=== PATIENT | male | born 2000 | race Caucasian/White ===

== ENCOUNTER 2021-11-23 01:21 | Day surgery (SDC) | payer BC, SELFPAY ==
[2021-11-22 12:29] VITALS: BMI 23.7
--- NOTE | 2021-11-22 12:36 | PC.NURSE ---
Report to the Outpatient Waiting Room, entrance under the green pavilion located off [facility], at time 0900 on date 11/23/21. OR Time: 1100. - You and your visitor will be asked a series of questions to screen for COVID 19 for your protection. - A mask is required within the hospital. One visitor will be allowed to accompany the patient into the hospital. Patients visitor will be instructed to remain with patient at all times or leave the building. We will allow the visitor to come back to the postoperative area when patient is ready. Preoperative COVID Testing Requirements: No COVID Test needed if: (proof is required; if not received patient will have Rapid Test prior to entry) - Patient has received COVID Vaccine at least 14 days prior to procedure date or - Patient has positive COVID test result within last 90 days of surgery date. COVID Test needed if above criteria is not met Patients may have clear liquids (water, carbonated beverages, clear teas, apple juice) until 3 hours prior to surgery (0800) with a maximum of 20 ounces. - No food from midnight until time of surgery Take the following medications with a SIP of water the morning of surgery: NONE Medications to discontinue per physician: N/A Date to take last dose: N/A Please no make-up, nail hebrew, hairspray, perfume, deodorant, or body powder the day of surgery. No jewelry (including any body piercings) or valuables the day of surgery, leave them at home. Please take a shower or bath the night before, or the morning of, surgery with an antibacterial soap. Wear comfortable, loose fitting clothing. - Jewelry must be removed prior to entering the operating room. Rings and piercings that are not removed may be cut off. - The hospital will not accept responsibility for valuables. - Please leave all valuables, including medications, at home the day of surgery. If you are going home after surgery, a licensed oil transport driver must drive you home. - NO public transportation without another adult. - We recommend that an adult stay with you for 24 hours following discharge. - We also recommend that you do not drive, make important decision, drink alcoholic beverages, or take any drugs that were not prescribed by your health care provider for at least 24 hours after your discharge time. Follow any additional instructions given to you from your surgeon. Telephone instructions given to SHAUN LILLY and asked if any additional questions and then verbalized understanding. Patient advised to call surgeon office or pre surgery nurse liaison [phone] if any additional questions.
[2021-11-23 09:31] VITALS: BP 121/64; PULSE 52; RESP 16; TEMP 37.2; O2SAT 100
[2021-11-23] MEDS: LACTATED RINGERS 1,000 ML 30 ML IV CONT ×2 (09:49→12:13)
--- NOTE | 2021-11-23 09:55 | WPDHPUPDATE1 ---
History and Physical Update Update Date/Time: 11/23/21 09:55 History and Physical has been reviewed, including an updated exam of the patient. There are NO changes in the patient's condition. Risks, benefits, and alternatives have been discussed and questions answered. Patient agrees to proceed with procedure.
--- NOTE | 2021-11-23 11:11 | WPDANESEPPF ---
Anes - Initial Pre Proc Eval Procedure: Operation Date: 11/23/21 11:00 Proposed Procedures p Excision Skin Cyst Right Buttock - Shay Massey MD Date/Time: 11/23/21 11:11 Surgeon: Shay Massey MD Pre Op Diagnosis: skin cyst right buttock Patient Data Age: 21 Gender: M Height: 1.91 m Weight: 87.2 kg Last Vital Signs Temp 37.2 C 11/23/21 09:31 Pulse 52 L 11/23/21 09:31 Resp 16 11/23/21 09:31 BP 121/64 11/23/21 09:31 Pulse Ox 100 11/23/21 09:31 Allergies Allergy/AdvReac Type Severity Reaction Status Date / Time Penicillins Allergy Mild Hives Verified 11/23/21 09:38 Home Medications Medication Instructions Recorded Confirmed Type No Home Medications 11/18/21 11/23/21 History Patient hx anesthesia problems: none Family hx anesthesia problems: none Results Review: All pre-operative results and documents have been reviewed as part of the pre-operative evaluation. [facility] Past Medical History Medical History No pertinent past medical history Surgical History Surgical History No history of previous surgery Family History Family History Father Patient's father is in good health Mother Patient's mother is in good health Sibling Patient's brother is in good health Social History Social History Smoking status: Former smoker Tobacco type: e-cigarettes/vaping Additional smoking assessment comments: STOPPED VAPING 2018 Alcohol intake: current Drinks per week: 30 Substance use: never Substance use type: does not use Living arrangements: with family 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 Informed Consent: The patient's anesthetic plan and its attendant risks and benefits were discussed with the patient/family/POA. Questions were solicited and answers provided to the satisfaction of the patient/family/POA.
[2021-11-23] MEDS: ceFAZolin 2 GM/D5W 50 ML 2 GM/50 ML BAG IVPB (11:21)
[2021-11-23 12:15] VITALS: BP 103/50; PULSE 73; RESP 12; O2SAT 95
[2021-11-23 12:45] VITALS: BP 97/51; PULSE 50; RESP 12; O2SAT 97
--- NOTE | 2021-11-23 13:09 | P.OP_ITS ---
Procedure Note - Detailed Date of Procedure 11/23/21 Pre-op Diagnosis skin cyst right buttock Post-op Diagnosis Same Procedure Performed Excision 4.5 cm skin cyst right buttocks with 8.5 cm layered closure Surgeon Shay Massey MD [employer] Amber ESQUIVELA Anesthesia General (G IV S) and Local (0.25% Marcaine with epinephrine) Indications Patient has a swollen skin and subcutaneous nodule on the upper right buttock that has drained off and on over the last year. He was seen in the clinic and found to have a large inclusion cyst of the upper right buttock. He is taken to surgery now for excision. Findings No significant findings. Findings were consistent with inclusion cyst. Description of Procedure Patient was taken to surgery and placed in prone position. Anesthesia was introduced and he was prepped and draped. The proposed elliptical incision was marked on the right upper buttocks. Local anesthetic was infiltrated into the skin and the deeper subcutaneous tissues. Incision was made over the previously drawn ellipse. We dissected through the skin and into the subcutaneous. Care was taken to avoid entry into the cyst. We excised the 2 ends of skin and then removed the cyst completely intact without opening it. We measured the cyst and the resultant wound. The cyst was sent to pathology in formalin. We made the wound hemostatic with cautery. Wound was closed in layers with 3-0 Vicryl interrupted suture. 4-0 Vicryl subcuticular interrupted suture were used to loosely approximate the skin. The skin was finally closed with a running 4-0 Monocryl skin suture. The wound was dressed with Exofin surgical adhesive. The patient was taken as recovery in good condition. Sponge and needle counts were correct x2. Estimated Blood Loss -5 Drains No Packing No Pathology Yes (Right buttocks inclusion cyst) Complications No immediate complications Condition Stable Disposition Same day
[2021-11-23 13:15] VITALS: BP 113/71; PULSE 47; RESP 14
== END 2021-11-23 13:30 | disposition home or self-care (01) ==
PROVIDERS: PCP Internal Medicine; Visit Provider Surgery
PROC: (CPT 11406; principal; 2021-11-23 11:00)
DX: L72.0 Epidermal cyst (principal); Z87.891 Personal history of nicotine dependence
CPT/HCPCS: 11406; 12034; 88305; A9270; J0690; J2250; J2704; J3010; J7120

== ENCOUNTER 2022-07-26 09:22 | Emergency (ER) | payer BC, SELFPAY ==
[2022-07-26 09:34] VITALS: BP 129/79; PULSE 62; RESP 16; TEMP 36.5; O2SAT 99
--- NOTE | 2022-07-26 09:53 | ED.URI ---
HPI - URI/Sore Throat General Chief Complaint: Upper Respiratory Infection Stated Complaint: FEVER/VOMITING/COUGH Time Seen by Provider: 07/26/22 10:09 Source: patient and RN notes reviewed Mode of arrival: ambulatory Limitations: no limitations History of Present Illness HPI Narrative: 22-year-old male presents with concern for cough. Reports symptoms started on Sunday, he had a low-grade fever, aches, chills, cough, runny nose and stuffy nose. Reports the symptoms are he has had a fever since yesterday. Reports he still has a lingering cough. Reports he is using cough drops MD elicited complaint: cough Related Data Allergies Allergy/AdvReac Type Severity Reaction Status Date / Time Penicillins Allergy Mild Hives Verified 07/26/22 09:56 Review of Systems Review of Systems: CONSTITUTIONAL: Denies malaise, chills, sweats, or fever. EYES: Denies visual changes, redness, or discharge. ENT: Reports rhinorrhea, congestion. Sinus pain, otalgia and sore throat. CARDIOVASCULAR: Denies chest pain, palpitations, or edema. RESPIRATORY: Reports cough. Denies dyspnea. GASTROINTESTINAL: Denies abdominal pain, nausea, vomiting, diarrhea SKIN: Denies rash or itching. MUSCULOSKELETAL: Denies myalgia. NEUROLOGIC: Denies headache. All systems reviewed & are unremarkable except as noted in HPI and below PMFSH Past Medical History Medical History ADHD No pertinent past medical history Surgical History Surgical History History of incision and drainage RIGHT BUTTOCK ABSCESS Family History Family History Father Patient's father is in good health Mother Patient's mother is in good health Sibling Patient's brother is in good health Social History Social History Smoking status: Former smoker Tobacco type: e-cigarettes/vaping Additional smoking assessment comments: STOPPED VAPING 2018 Alcohol intake: current Drinks per week: 4 Substance use: unknown Substance use type: does not use 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 There is no relevant family history pertinent to the presenting complaint Exam Narrative: GENERAL: Well-appearing, well-nourished, and in no acute distress. HEAD: Normocephalic EYES: PERRLA, conjunctivae clear ENT: Nares clear, turbinates edematous and erythematous, clear discharge. Mucous membranes moist. TM pearly chase with dull light reflex bilaterally; no tragal tenderness. Oropharynx not erythematous without lesions. Tonsils not enlarged and without exudate, no drooling, no hoarseness, no trismus, uvula midline. NECK: Supple. No lymphadenopathy CHEST: Clear to auscultation, breath sounds equal. No wheezing, rhonchi, rales, or stridor. No respiratory distress, speaks in full sentences. HEART: Regular rate and rhythm. No murmur heard. SKIN: Warm, dry, no rash. NEURO: Alert and oriented x3. PSYCH: Normal mood and affect Course Course Emergency Course: Patient is aware of diagnosis, understands and agrees to treatment plan. Anticipatory guidance given. Patient agrees to follow-up as directed and is aware of reasons to seek care at the emergency department. Portions of this record may have been created with voice recognition software Level of Care: Express Care Visit Vital Signs Vital signs: Vital Signs Temperature 97.7 F 07/26/22 09:34 Pulse Rate 62 07/26/22 09:34 Respiratory Rate 16 07/26/22 09:34 Blood Pressure 129/79 07/26/22 09:34 Pulse Oximetry 99 07/26/22 09:34 Temperature
== END 2022-07-26 10:27 | disposition home or self-care (01) ==
PROVIDERS: Emergency Provider Nurse Practitioner
DX: J06.9 Acute upper respiratory infection, unspecified (principal); F17.290 Nicotine dependence, other tobacco product, uncomplicated; F90.9 Attention-deficit hyperactivity disorder, unspecified type
CPT/HCPCS: 99213; G0463